=== PATIENT | male | born 1985 | race African-American/Black ===

== ENCOUNTER 2017-01-04 11:12 | Emergency (ER) | payer SELFPAY ==
[2017-01-04] MEDS ORDERED: NAPROXEN 250 MG TABLET PO ONE (11:44)
--- NOTE | 2017-01-04 11:46 | ER Document Report ---
ED Medical Screen (RME) - General Chief Complaint: Knee Injury Stated Complaint: KNEE PAIN Mode of Arrival: Ambulatory Information source: Patient Notes: 31 y/o M presents to ED c/o right knee pain and swelling. Reports 6 days ago was playing basketball when he struck his right knee with another players knee. Reports intermittently persistent pain and swelling since. I have greeted and performed a rapid initial assessment of this patient. A comprehensive ED assessment and evaluation of the patient, analysis of test results and completion of the medical decision making process will be conducted by additional ED providers. TRAVEL OUTSIDE OF THE [place] IN LAST 30 DAYS: No - Related Data Allergies/Adverse Reactions: Penicillins Allergy (Intermediate, Verified 01/04/17 11:43) Past Medical History - Immunizations Hx Diphtheria, Pertussis, Tetanus Vaccination: Yes Physical Exam - Vital signs Vitals: Temp Pulse Resp BP Pulse Ox 99.4 F 98 14 121/73 98 01/04/17 11:28 01/04/17 11:28 01/04/17 11:28 01/04/17 11:28 01/04/17 11:28 - General General appearance: Appears well, Alert In distress: None Course - Vital Signs Vital signs: Temp Pulse Resp BP Pulse Ox 99.4 F 98 14 121/73 98 01/04/17 11:28 01/04/17 11:28 01/04/17 11:28 01/04/17 11:28 01/04/17 11:28
--- NOTE | 2017-01-04 13:09 | ER Document Report ---
ED Extremity Problem, Lower - General Mode of Arrival: Ambulatory Information source: Patient TRAVEL OUTSIDE OF THE [place] IN LAST 30 DAYS: No - HPI Patient complains to provider of: Injury, Pain, Swelling Location: Knee - right Occurred: Last week Where: Sports Onset/Duration: Sudden Context: Direct blow Recent injury: Yes <SRINIVAS MARTINEZ - Last Filed: 01/04/17 15:06> <SNOW AGUIRRE - Last Filed: 01/04/17 18:17> - General Chief Complaint: Knee Injury Stated Complaint: KNEE PAIN Notes: Patient is a 31-year-old male that presents to the emergency department today with complaints of right knee pain. Patient states one week ago he was playing basketball and he banged knees with someone else. Patient states he has had pain since this occurred. Patient states he is able to walk with pain. Patient states his pain is exacerbated with flexing his right knee. (SRINIVAS MARTINEZ) - Related Data Allergies/Adverse Reactions: Penicillins Allergy (Intermediate, Verified 01/04/17 11:43) Past Medical History - General Information source: Patient - Social History Smoking Status: Current Some Day Smoker Cigarette use (# per day): Yes Chew tobacco use (# tins/day): No Frequency of alcohol use: None Drug Abuse: None Lives with: Family Family History: Reviewed & Not Pertinent Patient has suicidal ideation: No Patient has homicidal ideation: No - Medical History Medical History: Negative Surgical Hx: Negative - Immunizations Hx Diphtheria, Pertussis, Tetanus Vaccination: Yes Hx Pneumococcal Vaccination: 11/12/00 <SRINIVAS MARTINEZ - Last Filed: 01/04/17 15:06> Review of Systems - Review of Systems Constitutional: No symptoms reported EENT: No symptoms reported Cardiovascular: No symptoms reported Respiratory: No symptoms reported Gastrointestinal: No symptoms reported Genitourinary: No symptoms reported Male Genitourinary: No symptoms reported Musculoskeletal: See HPI, Joint pain - right knee pain Skin: No symptoms reported Hematologic/Lymphatic: No symptoms reported Neurological/Psychological: No symptoms reported -: Yes All other systems reviewed and negative <SRINIVAS MARTINEZ - Last Filed: 01/04/17 15:06> Physical Exam - General General appearance: Appears well, Alert In distress: None - HEENT Head: Normocephalic, Atraumatic Eyes: Normal Conjunctiva: Normal - Respiratory Respiratory status: No respiratory distress - Cardiovascular Rhythm: Regular - Abdominal Inspection: Normal Distension: No distension - Extremities General upper extremity: Normal inspection, Normal ROM. No: Edema General lower extremity: Other - Right anterior prepatellar effusion. Positive anterior drawer test. Negative posterior drawer test. Negative Khari's test. Good range of motion. Distal sensation and motor intact. - Neurological Neuro grossly intact: Yes Cognition: Normal Orientation: AAOx4 Speech: Normal - Psychological Associated symptoms: Normal affect, Normal mood - Skin Skin Temperature: Warm Skin Moisture: Dry Skin Color: Normal <SRINIVAS MARTINEZ - Last Filed: 01/04/17 15:06> Course <SRINIVAS MARTINEZ - Last Filed: 01/04/17 15:06> - Diagnostic Test Radiology reviewed: Reports reviewed <SNOW AGUIRRE - Last Filed: 01/04/17 18:17> - Re-evaluation Re-evalutation: 01/04/17 Patient with no acute findings on x-ray. Patient is able to ambulate. Full strength and range of motion. Likely knee sprain versus contusion with effusion. Discussed Kendall wrap versus immobilizer. Patient would prefer Kendall wrap. Will be given crutches. No other injuries. Return if any worsening or concerning symptoms. Understands agrees with plan. (SNOW AGUIRRE) - Vital Signs Vital signs: Temp Pulse Resp BP Pulse Ox 98.7 F 85 16 120/70 100 01/04/17 14:13 01/04/17 14:13 01/04/17 14:13 01/04/17 14:13 01/04/17 14:13 (SRINIVAS MARTINEZ) (SNOW AGUIRRE) Discharge <SRINIVAS MARTINEZ - Last Filed: 01/04/17 15:06> <SNOW AGUIRRE - Last Filed: 01/04/17 18:17> - Discharge Clinical Impression: Knee effusion, right Contusion of knee, right Qualifiers: Encounter type: initial encounter Qualified Code(s): S80.01XA - Contusion of right knee, initial encounter Condition: Stable Disposition: HOME, SELF-CARE Instructions: Sprained Knee ([facility]), Knee Effusion ([facility]), Kendall Wrap ([facility]), Ice & Elevation ([facility]), Use of Crutches ([facility]) Prescriptions: Naproxen [Naprosyn 375 Mg Tablet] 375 mg PO DAILY #14 tablet Oxycodone HCl/Acetaminophen [Percocet 7.5-325 Mg Tablet] 1 each PO BIDP PRN #20 tablet PRN Reason: Forms: Return to Work Scribe Attestation: 01/04/17 18:17 I personally performed the services described in the documentation, reviewed and edited the documentation which was dictated to the scribe in my presence, and it accurately records my words and actions. (SNOW AGUIRRE) Scribe Documentation - Scribe Written by Dariana:: Dairana Bustamante, 01/04/2017 1351 acting as scribe for :: Omero <SRINIVAS MARTINEZ - Last Filed: 01/04/17 15:06>
[2017-01-04 14:14] VITALS: BP 120/70
== END 2017-01-04 14:14 | disposition home or self-care (01) ==
LOC: ER 11:12
DX: S80.01XA Contusion of right knee, initial encounter (principal); F17.210 Nicotine dependence, cigarettes, uncomplicated; W51.XXXA Accidental striking against or bumped into by another person, initial encounter; Y93.67 Activity, basketball; Z88.0 Allergy status to penicillin
CPT/HCPCS: 99283

== ENCOUNTER 2017-01-10 17:10 | Emergency (ER) | payer SELFPAY ==
[2017-01-10 17:15] VITALS: BP 117/69
--- NOTE | 2017-01-10 17:24 | ER Document Report ---
ED Medical Screen (RME) - General Stated Complaint: RIGHT KNEE PAIN Notes: 31 yo male c/o right knee pain. pt seen for same on 01/04. treated for effusion pt reports several days later, knee developed a "pus pocket" and popped several days later. no fever, no hx/o DM TRAVEL OUTSIDE OF THE [place] IN LAST 30 DAYS: No - Related Data Allergies/Adverse Reactions: Penicillins Allergy (Intermediate, Verified 01/04/17 11:43) Past Medical History Renal/ Medical History: Denies: Hx Peritoneal Dialysis - Immunizations Hx Diphtheria, Pertussis, Tetanus Vaccination: Yes Physical Exam - Vital signs Vitals: Temp Pulse Resp BP Pulse Ox 98.2 F 92 16 117/69 100 01/10/17 17:14 01/10/17 17:14 01/10/17 17:14 01/10/17 17:14 01/10/17 17:14 Course - Vital Signs Vital signs: Temp Pulse Resp BP Pulse Ox 98.2 F 92 16 117/69 100 01/10/17 17:14 01/10/17 17:14 01/10/17 17:14 01/10/17 17:14 01/10/17 17:14
[2017-01-10] MEDS ORDERED: OXYCODONE-ACETAMINOPHEN 5-325 MG TABLET PO ONE ×2 (17:32→19:18)
[2017-01-10 18:04] LABS: ABSOLUTE BASOPHILS # (AUTO) 0.1 10^3/uL (0.0-0.2); ABSOLUTE EOSINOPHILS # (AUTO) 0.1 10^3/uL (0.0-0.6); ABSOLUTE LYMPHOCYTES (AUTO) 2.1 10^3/uL (0.5-4.7); ABSOLUTE MONOCYTES (AUTO) 0.6 10^3/uL (0.1-1.4); ABSOLUTE NEUT (AUTO) 7.1 10^3/uL (1.7-8.2); BASOPHILS % (AUTO) 0.9 % (0-2); EOSINOPHILS % (AUTO) 1.2 % (0-6); HEMATOCRIT 38.2 % (37.9-51.0); HEMOGLOBIN 12.6 g/dL (13.5-17.0); HGB HCT DIFFERENCE -0.4; LYMPHOCYTES % (AUTO) 21.2 % (13-45); MEAN CORPUSCULAR HEMOGLOBIN 26.8 pg (27.0-33.4); MEAN CORPUSCULAR VOLUME 81 fl (80-97); MONOCYTES % (AUTO) 5.9 % (3-13); RED CELL DISTRIBUTION WIDTH 13.3 % (11.5-14.0); SEGMENTED NEUTROPHILS % (AUTO) 70.8 % (42-78); WHITE BLOOD COUNT 10.1 10^3/uL (4.0-10.5)
--- NOTE | 2017-01-10 19:17 | ER Document Report ---
ED Extremity Problem, Lower - General Chief Complaint: Knee Pain Stated Complaint: RIGHT KNEE PAIN Notes: Patient is a 31-year-old male presents emergency department today for reevaluation of his knee. Patient was previously seen here on January 04 for sudden knee swelling of the right knee, denies any injury at that time. Patient states that at that time his dyspnea been swollen for about 3 days. While here he states that the physician who evaluated him tried to aspirate the joint for any fluid but there is no return. He was sent home with anti- inflammatory medications. He follows up today with concern for a wound that has developed on the anterior aspect of the knee where the swelling was and where he had had his knee aspirated. States that it's on January 07 he noticed a pus pocket developing on the skin which burst and he thought it started over that revealed a deeper wound today. Comes in for evaluation he is able to bear weight on the knee it does not hurt to move his knee does hurts on the skin or surrounding the wound denies any fevers or chills Allergy to penicillin TRAVEL OUTSIDE OF THE [place] IN LAST 30 DAYS: No - Related Data Allergies/Adverse Reactions: Penicillins Allergy (Intermediate, Verified 01/10/17 17:19) Past Medical History - Social History Smoking Status: Current Every Day Smoker Chew tobacco use (# tins/day): No Frequency of alcohol use: None Drug Abuse: None, Marijuana Family History: Reviewed & Not Pertinent Patient has suicidal ideation: No Patient has homicidal ideation: No Renal/ Medical History: Denies: Hx Peritoneal Dialysis - Immunizations Hx Diphtheria, Pertussis, Tetanus Vaccination: Yes Hx Pneumococcal Vaccination: 11/12/00 Review of Systems - Review of Systems Constitutional: No symptoms reported EENT: No symptoms reported Cardiovascular: No symptoms reported Respiratory: No symptoms reported Gastrointestinal: No symptoms reported Genitourinary: No symptoms reported Male Genitourinary: No symptoms reported Musculoskeletal: See HPI Skin: See HPI Hematologic/Lymphatic: No symptoms reported Neurological/Psychological: No symptoms reported Physical Exam - Vital signs Vitals: Temp Pulse Resp BP Pulse Ox 98.2 F 92 16 117/69 100 01/10/17 17:14 01/10/17 17:14 01/10/17 17:14 01/10/17 17:14 01/10/17 17:14 - Notes Notes: PHYSICAL EXAM GENERAL: Alert, interacts well. EXTREMITIES: Moves all 4 extremities spontaneously. No edema, radial and dorsalis pedis pulses 2/4 bilaterally. No cyanosis. NEUROLOGICAL: Alert and oriented x3. Normal speech. PSYCH: Normal affect, normal mood. - Skin Skin Temperature: Warm Skin Moisture: Dry Skin Color: Normal Skin Turgor: Elastic Skin irregularity: other - open wound Location of irregularity: Extremities Character of irregularity: Symmetric - [id number] lesions down to fat Irregularity with: Swelling, Tenderness, Warmth, Well defined border Course - Re-evaluation Re-evalutation: 01/10/17 19:37 Patient is able to move his knee without any difficulties has has pain superficially at the site of the wound. No concern for joint involvement at this time, septic joint. Will discharge patient home with by mouth antibiotics and instruction for follow-up this weekend - Vital Signs Vital signs: Temp Pulse Resp BP Pulse Ox 98.2 F 92 16 117/69 100 01/10/17 17:14 01/10/17 17:14 01/10/17 17:14 01/10/17 17:14 01/10/17 17:14 - Laboratory Result Diagrams: 01/10/17 17:30 Laboratory results interpreted by me: 01/10/17 17:30 Hgb 12.6 L MCH 26.8 L Plt Count 457 H Discharge - Discharge Clinical Impression: Open knee wound Qualifiers: Encounter type: initial encounter Laterality: right Qualified Code(s): S81.001A - Unspecified open wound, right knee, initial encounter Condition: Good Disposition: HOME, SELF-CARE Instructions: Use of [id number] Ibuprofen ([facility]) Additional Instructions: You will need to change the dressing every day. When you put a new gauze pad on , make sure that it is dry. Do not get it wet. Please return to the ED this weekend to have to wound reevaluated. Please take your antibiotics as prescribed Prescriptions: Oxycodone HCl/Acetaminophen [Percocet 5-325 mg Tablet] 1 - 2 tab PO Q4HP PRN # 25 tablet PRN Reason: Cephalexin Monohydrate [Keflex 500 mg Capsule] 500 mg PO QID 10 Days Sulfamethoxazole/Trimethoprim [Bactrim Ds Tablet] 1 each PO BID 10 Days
[2017-01-10] MEDS ORDERED: CEPHALEXIN 500 MG CAPSULE PO ONE (19:18)
[2017-01-10] MEDS ORDERED: SULFAMETHOXAZOLE/TRIMETHOPRIM 800-160 MG TABLET PO ONE (19:18)
== END 2017-01-10 19:45 | disposition home or self-care (01) ==
LOC: ER 17:10
DX: S81.001A Unspecified open wound, right knee, initial encounter (principal); M25.561 Pain in right knee; F17.210 Nicotine dependence, cigarettes, uncomplicated; X58.XXXA Exposure to other specified factors, initial encounter
CPT/HCPCS: 36415; 85025; 87070; 87077; 87186; 87205; 99283